=== PATIENT | male | born 1995 | race American Indian/Alaskan Native ===

== ENCOUNTER 2017-02-05 09:26 | Outpatient (CLI) | payer BC ==
[2017-02-05 10:01] LABS: Hematocrit 46.2 % (35.5-45.6); Hemoglobin 15.4 gm/dl (11.8-15.2); Mean Corpuscular HGB Conc 33 % (32-34); Mean Corpuscular Hemoglobin 29 pg (28-32); Mean Corpuscular Volume 87 fl (84-94); Platelet Count 195 K/mm3 (140-440); Red Blood Count 5.34 M/mm3 (3.65-5.03); Red Cell Distribution Width 13.6 % (13.2-15.2); White Blood Count 8.8 K/mm3 (4.5-11.0)
[2017-02-05 10:31] LABS: Alanine Aminotransferase 22 units/L (7-56); Albumin 4.7 g/dL (3.9-5); Albumin/Globulin Ratio 1.4 %; Alkaline Phosphatase 65 units/L (35-129); Anion Gap 17 mmol/L; BUN/Creatinine Ratio 13; Blood Urea Nitrogen 12 mg/dL (9-20); Calcium 9.2 mg/dL (8.4-10.2); Carbon Dioxide 28 mmol/L (22-30); Chloride 101.2 mmol/L (98-107); Cholesterol 180 mg/dL (50-199); Glucose 93 mg/dL (75-100); HDL Cholesterol 77 mg/dL (40-59); LDL Cholesterol,Direct 94 mg/dL (50-130); Potassium 4.3 mmol/L (3.6-5.0); Sodium 142 mmol/L (137-145); Total Protein 8.1 g/dL (6.3-8.2); Triglycerides 45 mg/dL (2-149)
[2017-02-05 10:38] LABS: HIV-1 Antigen p24 Non React (Non React); HIVR-1/2 Ab Non React (Non React)
== END 2017-02-05 09:27 | disposition home or self-care (01) ==
LOC: LAB 09:26
PROVIDERS: ATTEND Internal Medicine
DX: Z11.3 Encounter for screening for infections with a predominantly sexual mode of transmission (principal); R79.89 Other specified abnormal findings of blood chemistry
CPT/HCPCS: 36415; 80053; 80061; 84436; 84443; 84480; 85027; 86592; 87529; 87806

== ENCOUNTER 2017-07-01 22:09 | Emergency (ER) | payer BC ==
--- NOTE | 2017-07-01 23:29 | XRay Report ---
FINAL REPORT PROCEDURE: XR FINGER(S) 2+V RT TECHNIQUE: RIGHT finger radiographs, including AP, lateral, and oblique views. HISTORY: Right thumb swelling and pain s/p fall COMPARISON: No prior studies are available for comparison. FINDINGS: Fracture (s) and/or Dislocation(s): None . Alignment: Normal. Joint space(s): Normal . Soft tissues: Normal . Bone mineralization: Normal . Foreign bodies: None . IMPRESSION: Normal Examination
== END 2017-07-02 02:00 | disposition left against medical advice (07) ==
LOC: ED 22:09
DX: Z53.21 Procedure and treatment not carried out due to patient leaving prior to being seen by health care provider (principal)

== ENCOUNTER 2018-08-30 10:47 | Outpatient (CLI) | payer BC ==
--- NOTE | 2018-08-30 11:14 | XRay Report ---
RIGHT KNEE, 3 views: History: Right knee pain. The bony architecture is intact without evidence of fracture or dislocation. No significant soft tissue abnormality is seen. IMPRESSION: Normal right knee.
== END 2018-08-30 10:48 | disposition home or self-care (01) ==
LOC: XRAY 10:47
PROVIDERS: ATTEND Family Medicine
DX: M25.561 Pain in right knee (principal)

== ENCOUNTER 2018-09-20 11:10 | Outpatient (CLI) | payer BC ==
--- NOTE | 2018-09-20 13:07 | Magnetic Resonance Report ---
MRI RIGHT KNEE WITHOUT CONTRAST INDICATION: INTERNAL DERANGEMENT IF RIGHT KNEE INVOLVING CAPSULAR LIGAMENT. COMPARISON: None available. TECHNIQUE: Multiplanar, multisequence MR images were obtained. FINDINGS: ACL: No significant abnormality. PCL: No significant abnormality. MEDIAL MENISCUS: No significant abnormality. LATERAL MENISCUS: No significant abnormality. DISTAL QUADRICEPS TENDON: No significant abnormality. PATELLAR TENDON: No significant abnormality. MCL: Grade 2 sprain with thickened edematous MCL. LCL: No significant abnormality. DISTAL IT BAND: No significant abnormality. POSTEROLATERAL CORNER: No significant abnormality. PATELLOFEMORAL ALIGNMENT: No significant abnormality. ARTICULAR CARTILAGE: No significant chondrosis or articular cartilage defect. JOINT SPACE: No significant joint effusion or synovitis. No significant popliteal cyst. No intra-linda cular bodies. BONES: Focal bone marrow edema along peripheral medial aspect of medial femoral Condyle with probable tiny cortical avulsion fracture fragment measuring 6 mm in craniocaudal length seen best on coronal T1 image 12.. No osseous lesion. SUBCUTANEOUS SOFT TISSUES: No significant abnormality. ADDITIONAL FINDINGS: None. IMPRESSION: 1. Small cortical avulsion fracture along the peripheral aspect of medial femoral condyle with underl nik subchondral bone marrow edema. 2. Grade 2 MCL sprain. Signer Name: Jose Alejandro Sanchez MD Signed: 09/20/2018 12:03 PM Workstation Name: [id number]
== END 2018-09-20 11:11 | disposition home or self-care (01) ==
LOC: MRI 11:10
PROVIDERS: ATTEND Family Medicine
DX: M23.671 Other spontaneous disruption of capsular ligament of right knee (principal); F17.200 Nicotine dependence, unspecified, uncomplicated
CPT/HCPCS: 73721

== ENCOUNTER 2020-02-02 13:37 | Outpatient (CLI) | payer BC ==
[2020-02-02 14:17] LABS: Basophils % (Auto) 0.4 % (0.0-1.8); Eosinophils # (Auto) 0.4 K/mm3 (0.0-0.4); Eosinophils % (Auto) 4.1 % (0.0-4.3); Hematocrit 45.2 % (35.5-45.6); Hemoglobin 15.3 gm/dl (11.8-15.2); Lymphocytes # (Auto) 2.2 K/mm3 (1.2-5.4); Mean Corpuscular HGB Conc 34 % (32-34); Mean Corpuscular Volume 87 fl (84-94); Monocytes # (Auto) 0.7 K/mm3 (0.0-0.8); Monocytes % (Auto) 7.4 % (0.0-7.3); Platelet Count 188 K/mm3 (140-440)
[2020-02-02 14:39] LABS: Alanine Aminotransferase 32 units/L (7-56); Albumin 4.6 g/dL (3.9-5); BUN/Creatinine Ratio 14; Blood Urea Nitrogen 14 mg/dL (9-20); Calcium 9.7 mg/dL (8.4-10.2); Chol/HDL Ratio 2.37 %; HDL Cholesterol 75 mg/dL (40-59); Hemolysis Index 8; LDL Cholesterol,Direct 108 mg/dL (50-130)
[2020-02-07 15:20] LABS: HSV 1 IgG Type-Specific Ab <0.90 Index (<0.90); HSV 2 IgG Type-Specific Ab 1.11 Index (<0.90)
== END 2020-02-02 13:38 | disposition home or self-care (01) ==
LOC: LAB 13:37
PROVIDERS: ATTEND Physician Assistant Medical
DX: Z11.3 Encounter for screening for infections with a predominantly sexual mode of transmission (principal); Z00.00 Encounter for general adult medical examination without abnormal findings
CPT/HCPCS: 36415; 80053; 80061; 84436; 84443; 85025; 86592; 86689; 86695; 86696; 87591

== ENCOUNTER 2021-08-19 10:36 | Outpatient (CLI) | payer BC ==
[2021-08-19 11:38] LABS: Hematocrit 47.3 % (35.5-45.6); Mean Corpuscular HGB Conc 34 % (32-34); Mean Corpuscular Volume 89 fl (84-94); Platelet Count 199 K/mm3 (140-440); Red Blood Count 5.31 M/mm3 (3.65-5.03); Red Cell Distribution Width 13.5 % (13.2-15.2)
[2021-08-19 11:58] LABS: Alanine Aminotransferase 24 units/L (7-56); Albumin 4.8 g/dL (3.9-5); BUN/Creatinine Ratio 14; Blood Urea Nitrogen 14 mg/dL (9-20); Calcium 9.6 mg/dL (8.4-10.2); Chol/HDL Ratio 2.43 %; HDL Cholesterol 90 mg/dL (40-59); Hemolysis Index 0; LDL Cholesterol,Direct 121 mg/dL (50-130)
[2021-08-19 12:09] LABS: Free T4 (Free Thyroxine) 0.99 ng/dL (0.76-1.46)
[2021-08-21 18:21] LABS: Vitamin D, 25-OH, D2 <4 ng/mL
== END 2021-08-19 10:37 | disposition home or self-care (01) ==
LOC: LAB 10:36
PROVIDERS: ATTEND Internal Medicine
DX: Z11.3 Encounter for screening for infections with a predominantly sexual mode of transmission (principal); Z00.00 Encounter for general adult medical examination without abnormal findings
CPT/HCPCS: 36415; 80053; 80061; 82306; 84439; 84443; 84480; 85027; 86592; 86689; 87529; 87591